=== PATIENT | female | born 1990 | race Caucasian/White ===

== ENCOUNTER 2016-07-06 12:42 | Outpatient (CLI) | payer OTHER, MEDICAID ==
[~2016-07-06] VITALS: Ht 160 cm; Wt 105.9 kg
--- NOTE | 2016-07-06 13:49 | RADRPT ---
PROCEDURE: OB ultrasound for biophysical profile CLINICAL INDICATION: Post dates TECHNIQUE: Multiple sonographic images of the pelvis were obtained. Transabdominal view of the gr avid uterus are available for review. The images were reviewed on a PACS workstation. COMPARISON: None FINDINGS: breathing movement = 2/2 tone = 2/2 motion = 2/2 ZEUS = 2/2 ZEUS = 9.3 cm Single live intrauterine with cardiac activity. heart rate equals 154 beats p er minute. Presentation is cephalic. The placenta is posterior, grade 2. IMPRESSION: 1. Single viable intrauterine gestation. 2. Biophysical profile = 8/8. 3. ZEUS = 9.3 cm. RPTAT: KK .Hever Cristobal MD, MD Date Time Electronically viewed and signed by .Hever Cristobal MD, MD on 07/06/2016 13:49 .B/
--- NOTE | 2016-07-06 14:05 | RADRPT ---
PROCEDURE: US OB. CLINICAL INDICATION: Post dates. Clinical dates are 40 weeks 6 days. TECHNIQUE: Multiple sonographic images of the uterus were obtained. The images were revi ewed on a PACS workstation. COMPARISON: No prior studies are available for comparison. FINDINGS: There is a single live intrauterine gestation. heart rate is 139 beats per minute. Measurements were made in order to determine age. The results are as follows: BPD = 9.47 cm. HC = 33.21 cm. AC = 35.16 cm. FL = 7.37 cm. Estimated weight is 3534 +/- 530 grams. LMP growth percentile is 32 %. Menstrual age by ultrasound dates is 38 weeks 2 days. The estimated date of delivery is 07/18/2016. Position is cephalic and placenta is posterior grade II. There is no evidence for an abruption or pl acenta previa. IMPRESSION: 1. Single live intrauterine gestation of 38 weeks 2 days menstrual age by ultrasound dates. 2. The estimated date of delivery is 07/18/2016. RPTAT: QQ .Melchor Ferreira MD, Date Time Electronically viewed and signed by .Melchor Ferreira MD, on 07/06/2016 14:04 .R/
[2016-07-06 14:08] VITALS: Ht 160 cm; Wt 105.9 kg
--- NOTE | 2016-07-07 09:46 | DS ---
DATE OF ADMISSION: 07/06/2016 DATE OF DISCHARGE: 07/06/2016 The patient is a 25-year-old who presents at 40 and 6/7 weeks for . The patient has no complai nts. There is a category 2 to category 3 tracing. The patient was to stay for induction, however, th e patient desires to leave AMA for another hospital to be delivered in another hospital. The patient was stable on discharge. All the risks of morbidity and mortality were discussed w ith the patient and the patient desires to leave to [facility] Dictated By: STEVE PEDROZA MD /NTS Conf#: [id number] DID#: [id number]
== END 2016-07-06 15:24 | disposition left against medical advice (07) ==
LOC: OBT 12:42 → L-D 12:43 → OBT 15:24
PROVIDERS: ATTEND Obstetrics & Gynecology
DX: O48.0 Post-term pregnancy (principal); Z3A.40 40 weeks gestation of pregnancy; Z53.29 Procedure and treatment not carried out because of patient's decision for other reasons
CPT/HCPCS: 76815; 76818; G0463